=== PATIENT | male | born 1960 | race Caucasian/White ===

== ENCOUNTER 2021-01-06 14:35 | Emergency (ER) | payer MEDICARE, OTHER ==
[2021-01-06] MEDS ORDERED: MOXIFLOXACIN3 ML EYELF (16:49)
== END 2021-01-06 17:32 | disposition home or self-care (01) ==
LOC: FER 14:35
DX: S05.01XA Injury of conjunctiva and corneal abrasion without foreign body, right eye, initial encounter (principal); I10 Essential (primary) hypertension; F17.210 Nicotine dependence, cigarettes, uncomplicated; Z88.0 Allergy status to penicillin; Z88.2 Allergy status to sulfonamides; W22.8XXA Striking against or struck by other objects, initial encounter
CPT/HCPCS: 99283